=== PATIENT | female | born 2000 | race Caucasian/White ===

== ENCOUNTER 2020-11-13 14:27 | Observation (INO) ==
[~2020-11-13 14:27] MED LIST: Famotidine 20 MG/2 ML VIAL IVP ONE; Ringers Solution, Lactated 1,000 ML IVC ONE
[2020-11-13 17:52] LABS: Basophils % 0.3 %; Eosinophils # 0.1 K/mcL (0.0-0.6); Eosinophils % 0.6 %; Hematocrit 36.4 % (35.3-44.9); Hemoglobin 12.6 g/dL (11.5-15.4); Immature Granulocytes % 0.4 % (0-4); Lymphocytes # 3.4 K/mcL (0.6-4.6); Lymphocytes % 23.3 %; Mean Corpuscular HGB Conc 34.6 g/dL (31.6-35.5); Mean Corpuscular Hemoglobin 29.6 pg (28.0-33.3); Mean Corpuscular Volume 85.6 fL (83.0-100.0); Mean Platelet Volume 9.6 fL (9.4-12.4); Monocytes # 0.8 K/mcL (0.0-1.3); Monocytes % 5.5 %; Neutrophils # 10.1 K/mcL (1.6-8.9); Platelet Count 421 K/mcL (140-400); Red Blood Count 4.25 M/mcL (3.82-4.97); Red Cell Distribution Width 12.9 % (11.5-14.5); Segmented Neutrophils % 69.9 %
[2020-11-13 17:55] LABS: White Blood Count 14.5 K/mcL (4.3-11.1)
[2020-11-13] MEDS ORDERED: Methylergonovine 0.2 MG/ML AMPUL IM ONE (21:32)
[2020-11-13 22:04] VITALS: O2SAT 98
[2020-11-13] MEDS ORDERED: *HR* HYDROmorphone (PF) 1 MG/ML SYRINGE IVP PRN (22:11)
[2020-11-13] MEDS ORDERED: *HR* FentaNYL (PF) 100 MCG/2 ML VIAL IVP PRN (22:11)
[2020-11-13] MEDS ORDERED: Ondansetron 4 MG/2 ML VIAL IVP PRN (22:11)
[2020-11-13] MEDS ORDERED: Acetaminophen IV 1,000 MG/100 ML BAG IVPB ONE (22:13)
[2020-11-13] MEDS ORDERED: *HR* Midazolam HCl 2 MG/2 ML VIAL ONE (22:15)
[2020-11-13] MEDS ORDERED: *HR* FentaNYL (PF) 100 MCG/2 ML VIAL ONE (22:15)
[2020-11-13] MEDS ORDERED: *HR* Propofol 200 MG/20 ML VIAL IVP ONE (22:15)
[2020-11-13] MEDS ORDERED: Ondansetron 4 MG/2 ML VIAL ONE (22:31)
[2020-11-13] MEDS ORDERED: Lidocaine -MPF 2% 2 ML VIAL ONE (22:31)
[2020-11-13] MEDS ORDERED: Ketorolac 30 MG/ML VIAL ONE (22:50)
[2020-11-13] MEDS ORDERED: *HR* HYDROcodone/Acet 5/325 mg TABLET PO ONE (22:57)
[2020-11-13] MEDS ORDERED: Ringers Solution, Lactated 1,000 ML ONE (23:49)
[2020-11-14 00:25] VITALS: TEMP 97.9
[2020-11-14 01:47] VITALS: BP 100/58; PULSE 75
== END 2020-11-14 02:05 | disposition home or self-care (01) ==
LOC: 1NENUOBS
PROVIDERS: ADMIT Obstetrics & Gynecology; ATTEND Obstetrics & Gynecology